=== PATIENT | female | born 1975 ===

== ENCOUNTER 2017-03-14 12:43 | Emergency (ER) | payer BC ==
[2017-03-14 13:16] VITALS: O2SAT 100
[2017-03-14] MEDS ORDERED: Sodium Chloride 0.9% 1,000 ML IV SCH (13:45)
[2017-03-14 14:02] LABS: RBC URINE 9 /hpf (0-3); URINE BACTERIA RARE (<OCC); URINE BILIRUBIN NEGATIVE (NEGATIVE); URINE BLOOD SMALL (NEGATIVE); URINE COLOR STRAW (YELLOW); URINE GLUCOSE (UA) NEG (Normal); URINE KETONE NEGATIVE (NEGATIVE); URINE LEUKOCYTE ESTERASE MOD Leu/uL (Negative); URINE PROTEIN NEGATIVE (NEGATIVE); URINE UROBILINOGEN 0.2-1.0 mg/dL (0.2-1.0); WBC URINE 99 /hpf (0-5)
[2017-03-14 14:31] LABS: BASO % 0.4 % (0.0-2.0); EOS # 0.1 K/uL (0.0-0.7); EOS % 1.4 % (0.0-4.0); HEMATOCRIT 30.8 % (34.0-47.0); LYMPH # 1.9 K/uL (1.0-4.3); LYMPH % 19.6 % (20.0-40.0); MEAN CELL VOLUME 74.5 fl (81.0-99.0); MEAN CORPUSCULAR HEMOGLOBIN 23.8 pg (27.0-31.0); MEAN CORPUSCULAR HGB CONC 31.9 g/dL (33.0-37.0); MEAN PLATELET VOLUME 7.2 fl (7.2-11.7); MONO # 0.8 K/uL (0.0-0.8); MONO % 8.4 % (0.0-10.0); NEUT # 6.6 K/uL (1.8-7.0); NEUT % 70.2 % (50.0-75.0); RED CELL DISTRIBUTION WIDTH 17.8 % (11.5-14.5); WHITE BLOOD COUNT 9.4 K/uL (4.8-10.8)
[2017-03-14 14:33] LABS: BLOOD UREA NITROGEN 9 mg/dl (7-17); CARBON DIOXIDE 24 mmol/L (22-30); CHLORIDE 103 mmol/L (98-107); GFR AFRICAN-AMERICAN > 60; GLUCOSE,RANDOM 97 mg/dL (65-105); POTASSIUM 4.2 MMOL/L (3.6-5.0); SODIUM 139 mmol/l (132-148)
--- NOTE | 2017-03-14 14:33 | ED PDOC ---
HPI: Abdomen Time Seen by Provider: 03/14/17 13:23 Chief Complaint (Nursing): Abdominal Pain History Per: Patient History/Exam Limitations: no limitations Onset/Duration Of Symptoms: Days (2) Outside of [place] travel?: No Current Symptoms Are (Timing): Still Present Severity: Mild Location Of Pain/Discomfort: Suprapubic Quality Of Discomfort: Cramping, "Pain" Associated Symptoms: denies: Urinary Symptoms Last Bowel Movement: Today Additional Complaint(s): 42 year old female presents to ED with complaints of lower abdominal pain since yesterday. She reports pain is intermittent and cramping in nature. She took Tylenol with little relief. She had history of ovarian cysts and occasionally has pain. She reports her last menses was few days ago with heavier bleeding than usual. Denies any dysuria, SOB, chest pain or dizziness. Abnormal Vaginal Bleeding: No Last Menstral Period: 03/10/17 Past Medical History Reviewed: Historical Data, Nursing Documentation, Vital Signs Vital Signs: Last Vital Signs Temp 97.0 F L 03/14/17 13:13 Pulse 72 03/14/17 13:13 Resp 16 03/14/17 13:13 BP 124/82 03/14/17 13:13 Pulse Ox 100 03/14/17 15:57 - Medical History PMH: No Chronic Diseases - Surgical History Surgical History: No Surg Hx - Family History Family History: States: Unknown Family Hx - Living Arrangements Living Arrangements: With Family - Social History Current smoker - smoking cessation education provided: No Alcohol: None Drugs: Denies - Home Medications Home Medications: Ambulatory Orders Medication Instructions Recorded Nitrofurantoin Macrocrystals 1 cap PO BID #10 cap 03/14/17 [Macrobid] - Allergies Allergies/Adverse Reactions: Allergies Allergy/AdvReac Type Severity Reaction Status Date / Time No Known Allergies Allergy Verified 03/14/17 13:13 Review of Systems Constitutional: Negative for: Fever, Weakness Cardiovascular: Negative for: Chest Pain, Palpitations Respiratory: Negative for: Cough, Shortness of Breath Gastrointestinal: Positive for: Abdominal Pain (lower ). Negative for: Nausea, Vomiting, Diarrhea Genitourinary Female: Positive for: Pelvic Pain. Negative for: Dysuria, Vaginal Discharge, Vaginal Bleeding Skin: Negative for: Rash Neurological: Negative for: Weakness, Numbness, Headache, Dizziness Physical Exam - Reviewed Nursing Documentation Reviewed: Yes Vital Signs Reviewed: Yes - Physical Exam Appears: Positive for: Non-toxic, No Acute Distress Head Exam: Positive for: ATRAUMATIC, NORMAL INSPECTION, NORMOCEPHALIC Skin: Positive for: Normal Color, Warm, Dry. Negative for: Diaphoresis, Pallor , Rash Eye Exam: Positive for: Normal appearance Neck: Positive for: Normal, Painless ROM Cardiovascular/Chest: Positive for: Regular Rate, Rhythm. Negative for: Murmur Respiratory: Positive for: Normal Breath Sounds. Negative for: Wheezing, Respiratory Distress Gastrointestinal/Abdominal: Positive for: Bowel Sounds (active), Soft, Tenderness (mild suprapubic). Negative for: Distended, Guarding, Hernia Back: Positive for: Normal Inspection. Negative for: L CVA Tenderness, R CVA Tenderness Extremity: Positive for: Normal ROM. Negative for: Tenderness, Deformity, Swelling Neurologic/Psych: Positive for: Alert, Oriented - Laboratory Results Result Diagrams: 03/14/17 14:15 03/14/17 14:15 Urine dip results: Positive for: Leukocyte Esterase (moderate) - ECG O2 Sat by Pulse Oximetry: 100 Medical Decision Making Medical Decision Making: Impression: pelvic pain Prior records reviewed: None available for review Plan: * Labs * Pelvic US * UA * IV toradol, NS Progress: Labs show anemia, stable H/H. UA shows UTI. Ultrasound Report COMPARISON: 12/19/2016 and 10/27/2016 FINDINGS: UTERUS: Measures 6.5 x 2.8 x 3.9 cm. Retroverted, normal in size and appearance. No fibroid or other mass lesion seen. ENDOMETRIUM: Measures mm in diameter. Unremarkable. CERVIX: No cervical abnormality identified. RIGHT OVARY: Measures 3.2 x 2.2 x 2.7 cm. No solid mass. Normal flow. There is a 1.9 x 1.6 x 2.1 cm cyst with internal septation. There is no central flow on color Doppler imaging. LEFT OVARY: Measures 5.1 x 3.3 x 4.0 cm. No solid mass. Normal flow. There is a 4.6 x 3.0 x 2.7 cm cyst with homogeneous internal echoes. There is no central flow on color Doppler imaging. FREE FLUID: No significant free fluid noted. OTHER FINDINGS: None. IMPRESSION: 1. 1.9 x 1.6 x 2.1 cm septated cyst in the right ovary. No evidence of ovarian torsion. 2. 4.6 x 3.0 x 2.7 cm hemorrhagic cyst/endometrioma in the left ovary. No evidence of ovarian torsion. Clinical and ultrasound follow-up is advised. On reevaluation, patient resting comfortably in no distress. Vital signs stable. Discussed results with patient and provide copy US report. Plan is to discharge with Rx Macrobid. Patient to follow up outpatient. She is agreeable with plan. Disposition - Clinical Impression Clinical Impression: UTI (urinary tract infection), Ovarian cyst - Patient ED Disposition Is Patient to be Admitted: No Counseled Patient/Family Regarding: Diagnosis, Need For Followup, Rx Given - Disposition [facility] Disposition: Routine/Home Disposition Time: 15:55 Condition: STABLE Additional Instructions: Pati laboratorios muestran infeccin de orina y orina [place] el antibitico dos veces al da Por favor tome cualquier medicamentos diariamente ayde sea necesario para el dolor Seguimiento en la clnica para ms atencin Prescriptions: Nitrofurantoin Macrocrystals [Macrobid] 1 cap PO BID #10 cap Instructions: Urinary Tract Infection in Women (DC) Forms: [employer] ([place]atemalan) Print Language: THAI - POA Present On Arrival: None
--- NOTE | 2017-03-14 15:20 | US ---
HISTORY: pelvic pain, h.o ovarian cysts. Menstrual status: LMP 03/10/2017 COMPARISON: 01/19/2017 TECHNIQUE: Transabdominal only. Real-time technique with 2D, duplex and color Doppler FINDINGS: UTERUS: Measures 5.6 x 3.7 x 12.1 cm. Normal in size and appearance. No fibroid or other mass lesion seen. ENDOMETRIUM: Measures 5.1 mm in diameter. Unremarkable. CERVIX: No cervical abnormality identified. RIGHT OVARY: Measures 1.9 x 2.7 x 3.1 cm. No solid mass. Normal flow. LEFT OVARY: Measures 2.4 x 4.3 x 5.7 cm. No solid mass. Normal flow. Simple cyst left ovary 3.2 x 3.7 cm FREE FLUID: No significant free fluid noted. OTHER FINDINGS: None. IMPRESSION: Persistent cyst left ovary. Otherwise no acute/ significant findings or interval changes. This
[2017-03-14 16:31] VITALS: BP 135/79; PULSE 75; RESP 14; TEMP 98
== END 2017-03-14 16:26 | disposition home or self-care (01) ==
LOC: H.ER 12:43
DX: N39.0 Urinary tract infection, site not specified (principal); N83.202 Unspecified ovarian cyst, left side; D64.9 Anemia, unspecified
CPT/HCPCS: 76856; 80048; 81003; 81025; 85025; 96374; 99283; J1885; J7040